=== PATIENT | female | born 1955 | race Caucasian/White ===

== ENCOUNTER 2019-04-23 21:05 | Inpatient (IN) | payer BC ==
--- OUTSIDE RECORDS SUMMARY | 2019-04-23 21:24 | XMS REPORT | Continuity of Care Document ---
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 Problems Active Problems Provider Date Hypothyroidism Lauren Stone RN [employer] Onset: 12/16/2008 Benign essential hypertension Lauren Stone RN [employer] Onset: 12/16/2008 Social History Type Date Description Comments Sex Unknown Tobacco Use Start: Unknown Never Smoked Cigarettes ETOH Use Denies alcohol use Tobacco Use Start: Unknown Patient has never smoked Smoking Status Reviewed: 02/06/19 Patient has never smoked Seat Belt/Car Seat always uses seat belt Allergies, Adverse Reactions, Alerts Description No Known Drug Allergies Medications Active Medications SIG Qnty Indications Ordering Provider Date Valsartan-Hydrochlorot 1 by mouth 30tabs I10 Lauren Stone 01/03/2019 hiazide every day ASHTYN Landa MS 320-12.5mg Tablets Metoprolol Succinate Take One Tablet 30tabs I10 Lauren Stone 03/17/2017 ER By Mouth Every ASHTYN Landa MS 50mg Tablets ER 24HR Day Furosemide Take One Tablet 30tabs R60.0 Lauren Stone 03/17/2017 20mg Tablets By Mouth Every [place], ASHTYN KUO Day Potassium Chloride ER Take One Tablet 30tabs R60.0 Lauren Stone 2016 By Mouth With ASHTYN Landa MS 10Meq Tablets ER Lasix Ferrousul one tab daily 90tabs Lauren Stone 02/08/2017 325(65Fe) mg ASHTYN Landa MS Tablets Citalopram 1 By Mouth 90tabs F41.1 Angel Stoneen 03/10/2016 Hydrobromide Every Day C, RN [employer] 40mg Tablets Prilosec OTC 1 by mouth 90tabs K21.9 Bertha Lauren 07/12/2013 20mg Tablets every day C, RN [employer] DR Buspirone HCL Take 1 Tablet 180tabs F41.1 [employer] Lauren 06/16/2011 15mg Once To Twice A C, RN [employer] Tablets Day Levothyroxine Sodium Take 1 Tablet 90tabs E03.9 [employer] Lauren 06/08/2011 Daily C, RN [employer] 150mcg Tablets Aspirin Enteric Coated 1 PO qd [employer] Lauren 07/19/2006 C, RN [employer] 81mg Tablets Vitamins Multiple [facility] 07/19/2006 C, RN [employer] Caplets History Medications Losartan 1 by mouth 90tabs I10 [facility], 01/03/2019 - Potassium/Hydrochlorothiazide every day [facility], 01/03/2019 100-12.5mg Tablets RN [employer] Irbesartan take one tablet 30tabs I10 [facility], 01/03/2019 - 300mg Tablets by mouth every [facility], 02/06/2019 day for blood RN [employer] pressure Hydrochlorothiazide 1 tablet every 30tabs [facility], 01/03/2019 - 12.5mg Tablets morning, With [facility], 02/06/2019 The Remaining RN [employer] Irbesartan Immunizations CPT Code Status Date Vaccine Lot # [id number] Given 06/26/2018 Influenza Vac, Quadrivalent, Split, 0.5mL Dosage, [id number] Im Use 04642 Given 08/17/2017 Influenza Vac, Quadrivalent, Split, 0.5mL Dosage, [id number] Im Use 65042 Given 09/07/2016 Influenza Vac, Quadrivalent, Split, 0.5mL Dosage, [id number] Im Use 90933 Given 07/29/2015 Influenza Vac, Quadrivalent, Split, 0.5mL Dosage, [id number] Im Use Q2038 Given 07/16/2014 Fluzone Trivalent Immunization [id number] Q2038 Given 07/12/2013 Fluzone Trivalent Immunization [id number] Q2038 Given 06/27/2012 Fluzone Trivalent Immunization [id number] Q2038 Given 06/16/2011 Fluzone Trivalent Immunization [id number] 92967 Given 06/16/2011 Tdap (Adacel) Ages 7 And Above Only [id number] 74715 Given 07/02/2007 Afluria Or Fluvirin Flu Vac Intramuscular 27973 Given 07/02/2007 Afluria Or Fluvirin Flu Vac Intramuscular 15102 Given 07/02/2007 Afluria Or Fluvirin Flu Vac Intramuscular [id number] 34381 Given 07/19/2006 Afluria Or Fluvirin Flu Vac Intramuscular [id number] 93976 Given 06/16/2005 Tetanus And Diptheria Toxoids For Adult [id number] Use-preservative free 23623 Given 06/16/2005 Afluria Or Fluvirin Flu Vac Intramuscular [id number] 53745 Given 06/20/2003 Afluria Or Fluvirin Flu Vac Intramuscular 03972 Given 07/16/2002 Afluria Or Fluvirin Flu Vac Intramuscular 35516 Given 03/14/2002 Hepatitis B Vaccine Adult Dosage 07805 Given 10/23/2001 Hepatitis B Vaccine Adult Dosage 96149 Given 09/26/2001 Hepatitis B Vaccine Adult Dosage 07259 Given 11/04/1999 Immunization Td 7 Yrs Or Older [id number] Refused 01/07/2015 Fluzone Trivalent Immunization Vital Signs Date Vital Result Comment 02/06/2019 1:06pm Weight 352.25 lb Heart Rate 67 /min BP Systolic 149 mmHg BP Diastolic 82 mmHg Height 70 inches 5'10" BMI (Body Mass Index) 50.5 kg/m2 01/03/2019 9:45am Weight 355.25 lb Heart Rate 73 /min BP Systolic 158 mmHg BP Diastolic 88 mmHg Height 70 inches 5'10" BMI (Body Mass Index) 51.0 kg/m2 Results Test Date Facility Test Result H/L Range Note CBC with Auto Diff-[facility]cmg 01/03/2019 [facility] WBC 5.4 K/uL 4.1-11.0 RBC 4.28 M/uL 4.00-5.40 Hemoglobin 12.6 gm/dL 12.0-16.0 Hematocrit 38.4 % 36.0-47.0 MCV 89.9 fL 80.0-97.0 MCH 29.4 pg 27.0-32.0 MCHC 32.7 g/dL 32.0-36.0 RDW 15.0 % High 11.5-14.5 PLT Count 337 K/ul 140-400 MPV 8.4 FL 7.1-10.7 Neutrophil 67.9 % 35.0-75.0 Lymphocyte 17.6 % 16.0-52.0 Monocyte 11.1 % High 2.0-10.0 Eosinophil 2.6 % 0.0-5.0 Basophil 0.8 % 0.0-4.0 Abs Neutrophils 3.7 K/uL 2.1-8.0 Abs Lymphocytes 0.9 K/uL 0.8-5.5 Abs Monocytes 0.6 K/uL 0.1-1.0 Abs Eosinophils 0.1 K/uL 0.0-0.5 Abs Basophils 0.0 K/uL 0.0-0.3 Iron Panel 01/03/2019 [facility] Iron, Total 42 g/dL Low 50-170 Transferrin 334.0 mg/dL 203.0-362.0 Tibc (calc) 468 g/dL 261-478 % Iron Saturation 9.0 % Low 13.0-45.0 Comprehensive Met Panel-[facility] 01/03/2019 [facility] Sodium 140 mmol/L 135- 146 1 Potassium 4.9 mmol/L 3.5-5.2 Chloride# 101 mmol/L 97-110 2 Carbon Dioxide 31 mmol/L 24-34 Calcium 9.8 mg/dL 8.5-10.5 3 Glucose 89 mg/dL 70-105 BUN 11 mg/dL 6-26 Creatinine 0.9 mg/dL 0.5-1.4 Total Protein 6.9 g/dL 6.0-8.0 Albumin 4.1 g/dL 3.6-4.9 Globulin 2.8 g/dL 2.0-3.5 A/G Ratio 1.5 Ratio 1.0-2.2 Total Bilirubin 0.8 mg/dL 0.1-1.3 Alkaline Phosphatase 66 U/L 24-140 Alt 21 U/L 3-42 Ast 19 U/L 8-42 Anion Gap 8 mmol/L 5-15 4 Female Egfr 66 >60 5 Male Egfr 88 >60 6 Lipid 01/03/2019 [facility] Cholesterol 209 mg/dL High 50-199 Triglycerides 114 mg/dL 30-200 HDL 49 mg/dL 35-85 7 Chol/ HDL Ratio 4.3 ratio 3.7-5.6 VLDL 23 mg/dL 2- LDL (Calc) 137 mg/dL High 20-99 8 Laboratory test finding 01/03/2019 [facility] TSH 1.51 uIU/mL 0.35-4.94 1 Updated reference range on new analyzer 2 Updated reference range on new analyzer 3 Updated reference range 12-26-2018 4 Updated Reference Range 5 Concerning GFR Guidelines for Americans: Normal function or mild renal disease, if clinically at risk: >/= 60 mL/min Moderately decreased: 30-59 Severely decreased: 15-29 Renal failure: <15 There is reduced accuracy above 60ml/min/1.73 m squared, but the numeric value may be clinically useful in the near 60 range 6 Concerning GFR Guidelines: Normal function or mild renal disease, if clinically at risk: >/= 60 mL/min Moderately decreased: 30-59 Severely decreased: 15-29 Renal failure: <15 There is reduced accuracy above 60ml/min/1.73 m squared, but the numeric value may be clinically useful in the near 60 range Glomerular Filtration Rate (GFR) is estimated based on the CKD-EPI equation, which assumes a steady state for creatinine as recommended by the National Kidney Disease Education Program in conjunction with the National Institutes of Health and the National Kidney Foundation. Clinical conditions in which it may be necessary to measure GFR by using clearance methods include extremes of age and body size, severe malnutrition or obesity, diseases of skeletal muscle, paraplegia or quadriplegia, vegetarian diet, rapidly changing kidney function, and calculation of the dose of potentially toxic drugs that are excreted by the kidneys. 7 Per NCEP ATP III Guidelines: Results lower than 40 mg/dL are suggestive of increased risk for coronary artery disease. Results > or = to 60 mg/dL are considered a negative risk factor. 8 Per NCEP ATP III Guidelines: Normal Population <130 Patients with medical conditions: CHD/DM Optimal: <100 Borderline high: 130-159 High: 160-189 Very high: >189 Procedures Date Code Description Status 01/28/2019 [id number] Mammogram Completed 08/12/2015 [id number] Mammogram Completed 09/24/2014 [id number] Colonoscopy Completed 08/11/2014 [id number] Mammogram Completed 02/06/2014 [id number] Mammogram Completed 07/30/2013 [id number] Mammogram Completed 07/29/2013 [id number] Mammogram Completed 12/28/2011 [id number] Bone Mineral Density Test Completed 12/28/2011 [id number] Mammogram Completed 09/23/2010 [id number] Mammogram Completed 09/24/2009 [id number] Colonoscopy Completed 12/30/2008 [id number] Mammogram Completed Medical Devices Description No Information Available Encounters Type Date Location Provider Dx Diagnosis Office Visit 02/06/2019 Lauren Morales, I10 Essential (primary) 1:20p RN [facility] hypertension E78.2 Mixed hyperlipidemia K59.00 Constipation, unspecified Z68.43 Body mass index (BMI) 50-59.9, adult Office Visit 01/03/2019 9:40a Lauren Morales, E66.01 Morbid ( severe) RN [facility] obesity due to excess calories F33.0 Major depressive disorder, recurrent, mild D50.9 Iron deficiency anemia, unspecified I10 Essential (primary) hypertension E78.2 Mixed hyperlipidemia E03.9 Hypothyroidism, unspecified K21.9 Gastro-esophageal reflux disease without esophagitis Z12.31 Encntr screen mammogram for malignant neoplasm of breast Z68.43 Body mass index (BMI) 50-59.9, adult Assessments Date Code Description Provider 02/06/2019 I10 Essential (primary) hypertension Laurne Stone RN [facility] 02/06/2019 E78.2 Mixed hyperlipidemia Lauren Stone, ASHTYN [facility] 02/06/2019 K59.00 Constipation, unspecified Lauren Stone, ASHTYN [facility] 02/06/2019 Z68.43 Body mass index (BMI) 50-59.9, adult Lauren Stone, ASHTYN [facility] 01/03/2019 E66.01 Morbid (severe) obesity due to excess Lauren Stone, ASHTYN [facility] calories 01/03/2019 F33.0 Major depressive disorder, recurrent, Lauren Stone, ASHTYN [facility] mild 01/03/2019 D50.9 Iron deficiency anemia, unspecified Lauren Stone, RN [facility] 01/03/2019 I10 Essential (primary) hypertension Lauren Stone, ASHTYN [facility] 01/03/2019 E78.2 Mixed hyperlipidemia Lauren Stone RN [employer] 01/03/2019 E03.9 Hypothyroidism, unspecified Lauren Stone RN [employer] 01/03/2019 K21.9 Gastro-esophageal reflux disease Lauren Stone RN [employer] without esophagitis 01/03/2019 Z12.31 Encounter for screening mammogram for Lauren Stone RN [employer] malignant neoplasm of 01/03/2019 Z68.43 Body mass index (BMI) 50-59.9, adult Lauren Stone RN [employer] 01/03/2019 D50.9 Iron deficiency anemia, unspecified [facility] 01/03/2019 E78.2 Mixed hyperlipidemia [facility] 01/03/2019 E03.9 Hypothyroidism, unspecified [facility] Plan of Treatment Future Appointment(s):05/09/2019 9:40 am - Lauren Stone RN [employer] at [id number]/06/2019 - Lauren Stone RN MS [id number] Essential (primary) hypertensionFollow up:F/U IN 78.2 Mixed [id number] Constipation, unspecifiedMiscellaneous:DISCUSSED ADDING FIBER POWDER DAILY , DEP ON HOW MUCH IT TAKES TO HELP HER STOOL Use 2 tsp of unflavored fiber powder qd and advance to 2 tsp up to three times a day as needed to have a daily regular bm. Increase fluid intake daily to 4-8 glasses/day. Increase fiber by using 1-2 glasses of prune juice or prunes (2-4) daily, soy products, watermelon, apple juice or using whole grain breads, cereal,oatmeal. May try citrocel or metamucil or other fiber source on a regular basis. if you dont like to do the fiber powder, Must take for 1 week to see results. You need to be consistant with your treatment since this is a chronic or on going problem.Z68.43 Body mass index (BMI) 50-59.9, adult Functional Status Description No Information Available Mental Status Description No Information Available Referrals Refer to Reason for Referral Status Appt Date Delroy Wong MD Iron def anemia despite iron Received Complete 02/21/2019 replacement, x few years normal colo last year 01/16 REFERRAL AND RECORDS FAXED TO [facility] AT OFFICE- [facility] FOR PTS [employer] PPO..TW 01/23 SPOKE TO [facility] AT OFFICE- REFERRAL RECEIVED IN PIECES- RECORDS REFAXED..TW 01/28-PER HERI PT SCHEDULED AND AWARE OF APPT-[facility] [address] [place] [address] [phone]
--- OUTSIDE RECORDS SUMMARY | 2019-04-23 21:24 | XMS REPORT | Continuity of Care Document ---
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 [phone] Problems Active Problems Provider Date Hypothyroidism Lauren Stone RN [employer] Onset: 12/16/2008 Benign essential hypertension Lauren Stone RN [employer] Onset: 12/16/2008 Social History Type Date Description Comments Sex Unknown Tobacco Use Start: Unknown Never Smoked Cigarettes ETOH Use Denies alcohol use Tobacco Use Start: Unknown Patient has never smoked Smoking Status Reviewed: 02/06/19 Patient has never smoked Seat Belt/Car Seat always uses seat belt Allergies, Adverse Reactions, Alerts Description No Known Drug Allergies Medications Active Medications SIG Qnty Indications Ordering Provider Date Poly-Iron 150 D50.9 Majo Wick 04/23/2019 150mg MD Pratibha Capsules Xarelto 1 po qd 30tabs Majo Wick 04/23/2019 10mg Tablets MD Pratibha Valsartan-Hydrochlorot 1 by mouth 30tabs I10 Lauren Stone 01/03/2019 hiazide every day C, RN [employer] 320-12.5mg Tablets Metoprolol Succinate Take One Tablet 30tabs I10 Lauren Stone 03/17/2017 ER By Mouth Every C, RN MS KUO 50mg Tablets ER 24HR Day Furosemide Take One Tablet 30tabs R60.0 Lauren Stone 03/17/2017 20mg Tablets By Mouth Every C, ASHTYN KUO Day Potassium Chloride ER Take One Tablet 30tabs R60.0 Lauren Stone 2016 By Mouth With Cordell, RN [employer] 10Meq Tablets ER Lasix Citalopram 1 By Mouth 90tabs F41.1 Angel Stoneen 03/10/2016 Hydrobromide Every Day C, RN [employer] 40mg Tablets Buspirone HCL Take 1 Tablet 180tabs F41.1 Angel Stoneen 06/16/2011 15mg Once To Twice A C, RN [employer] Tablets Day Levothyroxine Sodium Take 1 Tablet 90tabs E03.9 Lauren Stone 06/08/2011 Daily C, RN [employer] 150mcg Tablets Aspirin Enteric Coated 1 PO qd Lauren Stone 07/19/2006 C, RN [employer] 81mg Tablets Vitamins Multiple Angel Stoneen 07/19/2006 C, RN [employer] Caplets History Medications Losartan 1 by mouth 90tabs I10 [place], 01/03/2019 - Potassium/Hydrochlorothiazide every day [facility], 01/03/2019 100-12.5mg Tablets RN [employer] Irbesartan take one tablet 30tabs I10 [place], 01/03/2019 - 300mg Tablets by mouth every [facility], 02/06/2019 day for blood RN [employer] pressure Hydrochlorothiazide 1 tablet every 30tabs [place], 01/03/2019 - 12.5mg Tablets morning, With [facility], 02/06/2019 The Remaining RN [employer] Irbesartan Immunizations CPT Code Status Date Vaccine Lot # [id number] Given 06/26/2018 Influenza Vac, Quadrivalent, Split, 0.5mL Dosage, [id number] Im Use 84924 Given 08/17/2017 Influenza Vac, Quadrivalent, Split, 0.5mL Dosage, [id number] Im Use 62549 Given 09/07/2016 Influenza Vac, Quadrivalent, Split, 0.5mL Dosage, [id number] Im Use 07403 Given 07/29/2015 Influenza Vac, Quadrivalent, Split, 0.5mL Dosage, [id number] Im Use Q2038 Given 07/16/2014 Fluzone Trivalent Immunization [id number] Q2038 Given 07/12/2013 Fluzone Trivalent Immunization [id number] Q2038 Given 06/27/2012 Fluzone Trivalent Immunization [id number] Q2038 Given 06/16/2011 Fluzone Trivalent Immunization [id number] 54206 Given 06/16/2011 Tdap (Adacel) Ages 7 And Above Only [id number] 29490 Given 07/02/2007 Afluria Or Fluvirin Flu Vac Intramuscular 35230 Given 07/02/2007 Afluria Or Fluvirin Flu Vac Intramuscular 77402 Given 07/02/2007 Afluria Or Fluvirin Flu Vac Intramuscular [id number] 87265 Given 07/19/2006 Afluria Or Fluvirin Flu Vac Intramuscular [id number] 69641 Given 06/16/2005 Tetanus And Diptheria Toxoids For Adult [id number] Use-preservative free 64283 Given 06/16/2005 Afluria Or Fluvirin Flu Vac Intramuscular [id number] 08939 Given 06/20/2003 Afluria Or Fluvirin Flu Vac Intramuscular 31361 Given 07/16/2002 Afluria Or Fluvirin Flu Vac Intramuscular 95448 Given 03/14/2002 Hepatitis B Vaccine Adult Dosage 64815 Given 10/23/2001 Hepatitis B Vaccine Adult Dosage 85720 Given 09/26/2001 Hepatitis B Vaccine Adult Dosage 73374 Given 11/04/1999 Immunization Td 7 Yrs Or Older [id number] Refused 01/07/2015 Fluzone Trivalent Immunization Vital Signs Date Vital Result Comment 04/23/2019 8:46am Weight 346.00 lb Heart Rate 88 /min BP Systolic 148 mmHg BP Diastolic 76 mmHg Height 70 inches 5'10" O2 % BldC Oximetry 9596 % Room Air BMI (Body Mass Index) 49.6 kg/m2 02/06/2019 1:06pm Weight 352.25 lb Heart Rate 67 /min BP Systolic 149 mmHg BP Diastolic 82 mmHg Height 70 inches 5'10" BMI (Body Mass Index) 50.5 kg/m2 Results Test Date Facility Test Result H/L Range Note Laboratory test 04/23/2019 [facility] Urea Nitrogen 17 mg/ dL 7-21 finding [phone] Creatinine W/GFR 04/23/2019 [facility] Creatinine 1.1 mg/dL 0.6-1.3 9 [phone] GFR 53 Laboratory test 04/23/2019 [facility] Ferritin <pending> finding Laboratory test 04/23/2019 [facility] D-Dimer,Sensitiv <pending> finding e-RL Xray 04/23/2019 [facility] Cta, Chest, With <pending> [address] [facility] [place] [address] [phone] CBC with Auto 01/03/2019 [facility] WBC 5.4 K/uL 4.1-11.0 Diff-fcmg RBC 4.28 M/uL 4.00-5.40 Hemoglobin 12.6 gm/dL [...] Basophils 0.0 K/uL 0.0-0.3 Iron [facility], Total 42 g/dL Low 50-170 Transferrin 334.0 mg/dL 203.0-362.0 Tibc (calc) 468 g/dL 261-478 % Iron Saturation 9.0 % Low 13.0-45.0 Comprehensive Met Panel-[facility] 01/03/2019 [facility] Sodium 140 mmol/L 135- 146 2 Potassium 4.9 mmol/L 3.5-5.2 Chloride# 101 mmol/L 97-110 3 Carbon Dioxide 31 mmol/L 24-34 Calcium 9.8 mg/dL 8.5-10.5 4 Glucose 89 mg/dL 70-105 BUN 11 mg/dL 6-26 Creatinine 0.9 mg/dL 0.5-1.4 Total Protein 6.9 g/dL 6.0-8.0 Albumin 4.1 g/dL 3.6-4.9 Globulin 2.8 g/dL 2.0-3.5 A/G Ratio 1.5 Ratio 1.0-2.2 Total Bilirubin 0.8 mg/dL 0.1-1.3 Alkaline Phosphatase 66 U/L 24-140 Alt 21 U/L 3-42 Ast 19 U/L 8-42 Anion Gap 8 mmol/L 5-15 5 Female Egfr 66 >60 6 Male Egfr 88 >60 7 Lipid 01/03/2019 [facility] Cholesterol 209 mg/dL High 50-199 Triglycerides 114 mg/dL 30-200 HDL 49 mg/dL 35-85 8 Chol/ HDL Ratio 4.3 ratio 3.7-5.6 VLDL 23 mg/dL 2-29 LDL (Calc) 137 mg/dL High 20-99 9 Laboratory test finding 01/03/2019 [facility] TSH 1.51 uIU/mL 0.35-4.94 1 Normal Kidney Function or Mild Disease - GFR >OR= 60 Chronic Kidney Disease - GFR 15-59 Renal Failure - GFR < 15 GFR not calculated on patients under 18 years of age. 2 Updated reference range on new analyzer 3 Updated reference range on new analyzer 4 Updated reference range 12-26-2018 5 Updated Reference Range 6 Concerning GFR Guidelines for Americans: Normal function or mild renal disease, if clinically at risk: >/= 60 mL/min Moderately decreased: 30-59 Severely decreased: 15-29 Renal failure: <15 There is reduced accuracy above 60ml/min/1.73 m squared, but the numeric value may be clinically useful in the near 60 range 7 Concerning GFR Guidelines: Normal function or mild [...] drugs that are excreted by the kidneys. 8 Per NCEP ATP III Guidelines: Results lower than 40 mg/dL are suggestive of increased risk for coronary artery disease. Results > or = to 60 mg/dL are considered a negative risk factor. 9 Per NCEP ATP III Guidelines: Normal Population <130 Patients with medical conditions: CHD/DM Optimal: <100 Borderline high: 130-159 High: 160-189 Very high: >189 Procedures Date Code Description Status 04/23/2019 83046 Measure Blood Oxygen Level Single Determination Completed 04/23/2019 37138 Electrocardiogram Complete Completed 01/28/2019 [id number] Mammogram Completed 08/12/2015 [id number] Mammogram Completed 09/24/2014 [id number] Colonoscopy Completed 08/11/2014 29250012 Mammogram Completed 02/06/2014 [id number] Mammogram Completed 07/30/2013 [id number] Mammogram Completed 07/29/2013 [id number] Mammogram Completed 12/28/2011 [id number] Bone Mineral Density Test Completed 12/28/2011 [id number] Mammogram Completed 09/23/2010 [id number] Mammogram Completed 09/24/2009 [id number] Colonoscopy Completed 12/30/2008 [id number] Mammogram Completed Medical Devices Description No Information Available Encounters Type Date Location Provider Dx Diagnosis Office Visit 02/06/2019 Lauren Morales, I10 Essential (primary) 1:20p RN [employer] hypertension E78.2 Mixed hyperlipidemia K59.00 Constipation, unspecified Z68.43 Body mass index (BMI) 50.0-59.9, adult Office Visit 01/03/2019 9:40a Lauren Morales, E66.01 Morbid ( severe) RN [employer] obesity due to excess calories F33.0 Major depressive disorder, recurrent, mild D50.9 Iron deficiency anemia, unspecified I10 Essential (primary) hypertension E78.2 Mixed hyperlipidemia E03.9 Hypothyroidism, unspecified K21.9 Gastro-esophageal reflux disease without esophagitis Z12.31 Encntr screen mammogram for malignant neoplasm of breast Z68.43 Body mass index (BMI) 50.0-59.9, adult Assessments Date Code Description Provider 04/23/2019 E66.01 Morbid (severe) obesity due to excess Majo Wick MD calories 04/23/2019 R06.02 Shortness of breath Majo Wick MD 04/23/2019 D50.9 Iron deficiency anemia, unspecified Majo Wick MD 04/23/2019 I10 Essential (primary) hypertension Majo Wick MD 04/23/2019 R60.0 Localized edema Majo Wick MD 04/23/2019 Z68.42 Body mass index (BMI) 45.0-49.9, adult Majo Wick MD 02/06/2019 I10 Essential (primary) hypertension Lauren Stone RN [facility] 02/06/2019 E78.2 Mixed hyperlipidemia Lauren Stone, ASHTYN [facility] 02/06/2019 K59.00 Constipation, unspecified Lauren Stone, ASHTYN [facility] 02/06/2019 Z68.43 Body mass index (BMI) 50-59.9, adult Lauren Stone, ASHTYN [facility] 01/03/2019 E66.01 Morbid (severe) obesity due to excess Lauren Stone, ASHTYN [facility] calories 01/03/2019 F33.0 Major depressive disorder, recurrent, Lauren Stone, ASHTYN [facility] mild 01/03/2019 D50.9 Iron deficiency anemia, unspecified Lauren Stone, ASHTYN [facility] 01/03/2019 I10 Essential (primary) hypertension Lauren Stone, ASHTYN [facility] 01/03/2019 E78.2 Mixed hyperlipidemia Lauren Stone, ASHTYN [facility] 01/03/2019 E03.9 Hypothyroidism, unspecified Lauren Stone, RN [facility] 01/03/2019 K21.9 Gastro-esophageal reflux disease Lauren Stone, RN [facility] without esophagitis 01/03/2019 Z12.31 Encounter for screening mammogram for Lauren Stone RN [facility] malignant neoplasm of 01/03/2019 Z68.43 Body mass index (BMI) 50-59.9, adult Lauren Stone, ASHTYN [facility] 01/03/2019 D50.9 Iron deficiency anemia, unspecified [facility] 01/03/2019 E78.2 Mixed hyperlipidemia [facility] 01/03/2019 E03.9 Hypothyroidism, unspecified [facility] Plan of Treatment Future Appointment(s):05/09/2019 9:40 am - Lauren Stone RN [facility] [employer] [facility] at [facility]/23/2019 - Majo Wick MDE66.01 Morbid (severe) obesity due to excess caloriesNew Labs:BUN/Creat/GFR Panel, Ordered: 04/23/19R06.02 Shortness of xbcbwgC49.9 Iron deficiency anemia, unspecifiedNew Medication:Poly-Iron 150 150 mg -I10 Essential (primary) xidmlhwodniwY80.0 Localized edemaNew Xrays: Venous Doppler, LT Leg Lower, Scheduled: 04/23/19Z68.42 Body mass index (BMI) 45.0-49.9, adult Functional Status Description No Information Available Mental Status Description No Information Available Referrals Refer to Dr Reason for Referral Status Appt Date Delroy Wong MD Iron def anemia despite iron Received Complete 02/21/2019 replacement, x few years normal colo last year 01/16 REFERRAL AND RECORDS FAXED TO [facility] AT OFFICE- NRN FOR PTS [employer] PPO..TW 01/23 SPOKE TO [facility] AT OFFICE- REFERRAL RECEIVED IN PIECES- RECORDS REFAXED..TW 01/28-PER HERI PT SCHEDULED AND AWARE OF APPT-[facility] [address] [place] [address] [phone]
--- NOTE | 2019-04-23 21:40 | ED ---
Dizziness - HPI Summary HPI Summary: This pt is a 63 Y/O F presenting to [facility] accompanied by her with a CC of dizziness that is rated a 5/10 in severity and was recommended to visit the ED from her PCP. She states that she was prescribed Xarelto 10 mg today after being discharged with a blood clot in her left lower leg. 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 Her provider recommended visiting the ED for a GI work-up to rule out a GI bleed. She stated that for the past two weeks her dizziness has increased in severity and for the past week she has been unable to stand by herself. Upon arrival her temperature was recorded as 100.1 F in triage. She is also SOB and has nausea. She denies any vomiting, headaches, chills, abdominal pains, and CP. She stated that standing and exertions aggravates her symptoms. She stated no alleviating symptoms. She has a PMHx of low iron that has been controlled by iron supplements. She stated that her last colonoscopy was completed 10/04/17 and had 4 polyps. She states that she no longer gets a period. - History Of Current Complaint Chief Complaint: EDDizziness Stated Complaint: BLOOD CLOT IN LEFT LEG PER PT Time Seen by Provider: 04/23/19 21:24 Hx Obtained From: Patient Last Known Well Date: 2 weeks PARKING TECHNICIAN Onset/Duration: Still Present, Gradually - has been incresing in severity for 2 weeks Timing: Constant Severity Initially: Moderate Severity Currently: Severe Character: Dizzy Aggravating Factor(s): Other - standing, exertion Alleviating Factor(s): Nothing Associated Signs And Symptoms: Positive: Negative - headaches, abdominal pains, Nausea, SOB, Change In Medication - Xarelto 10 mgs prescribed today, Fever - 100.1 F, Inability to Walk. Negative: Vomiting, Chest Pain, Chills - Allergies/Home Medications Allergies/Adverse Reactions: Allergies Allergy/AdvReac Type Severity Reaction Status Date / Time No Known Allergies Allergy Verified 09/22/14 15:30 PMH/Surg Hx/FS Hx/Imm Hx Previously Healthy: No Endocrine/Hematology History: Denies: Hx Diabetes Cardiovascular History: Reports: Hx Hypertension, Other Cardiovascular Problems/ Disorders - Low iron Denies: Hx Pacemaker/ICD Respiratory History: Denies: Hx Asthma History: Denies: Hx Renal Disease Sensory History: Denies: Hx Hearing Aid Psychiatric History: Reports: Hx Panic Disorder - Cancer History Hx Chemotherapy: No Hx Radiation Therapy: No - Surgical History Surgery Procedure, Year, and Place: TUBAL 94;. GALLBLADDER 04;. RIGHT BREAST BIOPSY (PATIENT STATES NO CLIP TO HER KNOWLEDGE); Infectious Disease History: No Infectious Disease History: Denies: Traveled Outside the [place] in Last 30 Days - Social History Alcohol Use: None Substance Use Type: Reports: None Smoking Status (MU): Never Smoked Tobacco Review of Systems Positive: Fever - 100.1 F, Other - POSITIVE: dizziness, inability to walk . Negative: Chills Negative: Chest Pain Positive: Shortness Of Breath Positive: Nausea. Negative: Abdominal Pain, Vomiting Negative: Headache All Other Systems Reviewed And Are Negative: Yes Physical Exam - Summary Physical Exam Summary: VITAL SIGNS: Reviewed. GENERAL: Patient is a well-developed and morbidly obese, female who is lying comfortable in the stretcher. Patient is not in any acute respiratory distress. HEAD AND FACE: No signs of trauma. No ecchymosis, hematomas or skull depressions. No sinus tenderness. EYES: PERRLA, EOMI x 2, No injected conjunctiva, no nystagmus. EARS: Hearing grossly intact. Ear canals and tympanic membranes are within normal limits. MOUTH: Oropharynx within normal limits. NECK: Supple, trachea is midline, no adenopathy, no JVD, no carotid bruit, no c- spine tenderness, neck with full ROM CHEST: Symmetric, no tenderness at palpation LUNGS: Clear to auscultation bilaterally. No wheezing or crackles. CVS: Regular rate and rhythm, S1 and S2 present, no murmurs or gallops appreciated. ABDOMEN: Soft, non-tender. No signs of distention. No rebound no guarding, and no masses palpated. Bowel sounds are normal. EXTREMITIES: FROM in all major joints, no edema, no cyanosis or clubbing. NEURO: Alert and oriented x 3. No acute neurological deficits. Speech is normal and follows commands. SKIN: Dry and warm, pale RECTAL: external hemorrhoids not bleeding. No masses, brown stool sent for occult screening. Triage Information Reviewed: Yes Vital Signs On Initial Exam: Initial Vitals Temp Pulse Resp BP Pulse Ox 100.1 F 98 18 150/85 98 04/23/19 21:12 04/23/19 21:12 04/23/19 21:12 04/23/19 21:12 04/23/19 21:12 Vital Signs Reviewed: Yes Diagnostics - Vital Signs Vital Signs Temp Pulse Resp BP Pulse Ox 04/23/19 21:27 98.1 F 04/23/19 21:12 100.1 F 98 18 150/85 98 - Laboratory Result Diagrams: 04/23/19 22:04 04/23/19 22:04 Lab Statement: Any lab studies that have been ordered have been reviewed, and results considered in the medical decision making process. - EKG 2144 Cardiac Rate: NL - 91 BPM EKG Rhythm: Sinus Rhythm Ectopy: None EKG Comparison: No Significant Change Summary of EKG Findings: NSR at 91 BPM with Q waves in her inferior leads. Normal interval. No STEMI. Interpreted [place] Dr. Chisholm at 214404/23/19. Dizzy Course/Dx - Course Course Of Treatment: This pt is a 63 Y/O F [facility] accompanied by her with a CC of dizziness that is rated a 5/10 in severity and was recommended to visit the ED from her PCP. She states that she was prescribed Xarelto 10 mg today after being discharged with a blood clot in her left lower leg. 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 She stated that she has been SOB and has had episodic nausea. She is also unable to stand due to the severity of the dizziness. She denies any CP, abdominal pain, and vomiting. She has a PMHx of polyps, anemia, and HTN. Her PE found that she is pale, morbidly obese, and has external hemorrhoids not bleeding. No masses, brown stool sent for occult screening. She has abnormalities in her laboratory results in RBC 2.46, Hgb 5.7, Hct 18, MCV 74, MCH 23, RDW 22, MPV 7.2, Absolute monos 1.2, INR 1.55, APTT 43.3, BUN/ Creatinine ratio 20.7, and Glucose 108. Her EKG taken at 2144 showed a NSR at 91 BPM with Q waves in her inferior leads. Normal interval. No STEMI. She will be admitted to [facility] after a consult with Dr. Clemons, hospitalist, at 2253 for symptomatic anemia and further evaluations. - Diagnoses Provider Diagnoses: Symptomatic anemia - Provider Notifications Discussed Care Of Patient With: La Nena Clemons Time Discussed With Above Provider: 22:55 Instructed by Provider To: Admit As Inpatient Admit/Transition Orders Completed By ED Provider: Yes Discharge ED - Sign-Out/Discharge Documenting (check all that apply): Patient Departure - admitted Patient Received Moderate/Deep Sedation with Procedure: No - Discharge Plan Condition: Stable Disposition: ADMITTED TO [facility] Referrals: Majo Powell MD [Primary Care Provider] - - Attestation Statements Document Initiated by Scribe: Yes Documenting Scribe: Cheikh Saldivar Provider For Whom Scribe is Documenting (Include Credential): Cassie Chisholm MD Scribe Attestation: Cheikh Egan, scribed for Cassie Chisholm MD on 04/23/19 at 2253. Status of Scribe Document: Ready
[2019-04-23 22:19] LABS: Hematocrit 18 % (35-47); Hemoglobin 5.7 g/dL (12.0-16.0); Mean Corpuscular HGB Conc 31 g/dL (31-36); Mean Corpuscular Hemoglobin 23 pg (27-31); Mean Corpuscular Volume 74 fL (80-97); Mean Platelet Volume 7.2 fL (7.4-10.4); Platelet Count 395 10^3/uL (150-450); Red Blood Count 2.46 10^6 /uL (3.70-4.87); Red Cell Distribution Width 22 % (10-15); White Blood Count 9.8 10^3/uL (3.5-10.8)
[2019-04-23 22:26] LABS: Activated Partial Thrombo Time 43.3 seconds (26.0-38.0); INR 1.55 (0.82-1.09)
[2019-04-23 22:30] LABS: ALT 18 U/L (7-52); AST 14 U/L (13-39); Albumin 3.8 g/dL (3.2-5.2); Albumin/Globulin Ratio 1.3 (1-3); Alkaline Phosphatase 57 U/L (34-104); Anion Gap 6 mmol/L (2-11); BUN/Creatinine Ratio 20.7 (8-20); Blood Urea Nitrogen 19 mg/dL (6-24); CO2 Carbon Dioxide 27 mmol/L (22-32); Calcium 8.9 mg/dL (8.6-10.3); Chloride 103 mmol/L (101-111); EGFR African American 74.6 (>60); EGFR Non-African American 61.7 (>60); Glucose 108 mg/dL (70-100); Sodium 136 mmol/L (135-145); Total Protein 6.8 g/dL (6.4-8.9)
[2019-04-23 22:40] LABS: ABS Basophils 0.1 10^3/ul (0-0.2); ABS Eosinophils 0.1 10^3/ul (0-0.6); ABS Lymphocytes 1.6 10^3/ul (1.0-4.8); ABS Monocytes 1.2 10^3/ul (0-0.8); ABS Neutrophils 6.8 10^3/ul (1.5-7.7); ABS Nucleated RBC 0.1 10^3/ul; Lymphocyte % 16.2 %; Nucleated Red Blood Cells % 0.6
[2019-04-23] MEDS ORDERED: Acetaminophen TAB* 325 MG PO PRN (23:10)
[2019-04-23] MEDS ORDERED: Ondansetron ODT TAB* 4 MG PO PRN (23:10)
[2019-04-23 23:31] LABS: Total Iron Binding Capacity 549 mcg/dL (250-450); Transferrin 392 mg/dL (203-362)
[2019-04-23 23:33] LABS: % Iron Saturation 4 % (15-55); Iron < 20 ug/dL (50-212)
[2019-04-23 23:53] LABS: Ferritin 4.4 ng/mL (11-307)
[2019-04-23 23:57] LABS: Folate 15.68 ng/mL (>3.99)
--- NOTE | 2019-04-24 02:13 | HP ---
HISTORY AND PHYSICAL: DATE OF ADMISSION: 04/23/19 PRIMARY CARE PROVIDER: Dr. Majo Wick. BURGLAR ALARM SUPERINTENDENT: Hayder Randle, the patient's . CODE STATUS: Full. CHIEF COMPLAINT: Abnormal labs, dizziness. REASON FOR ADMISSION: Symptomatic anemia. SOURCE OF INFORMATION: HPI is obtained from the patient, who is an excellent historian. HISTORY OF PRESENT ILLNESS: This is 63-year-old female with a past medical history of iron-deficient anemia diagnosed roughly 2 years ago, followed by Dr. Wong; hypothyroidism; hypertension; anxiety; history of DVT 3 years ago, treated with 6 months of oral anticoagulants and recently diagnosed superficial thrombophlebitis of left lower extremity, who presents to the ER this evening with complaints of dizziness along with an outside abnormal lab value. The patient reports that for the last 4 days, she has been getting worked up by her primary care provider for new left lower leg swelling, redness, and pain along with dizziness. She was sent to [facility] this morning to get a rule out ultrasound for DVT and CTA for PE and per her, the CTA was negative, although the ultrasound of left lower extremity did show a superficial thrombophlebitis, although did not meet criteria for DVT. Nonetheless, the position of the superficial thrombophlebitis and the extent it was enough that the decision of her primary care provider and Dr. Wong decided to place the patient on low-dose Xarelto at 10 mg for a total of 40 days. She also ended up getting labs done in [facility] and this evening, she got a call from her primary care provider as labs resulted with a low hemoglobin to a level of 6 and she was told to present to the emergency room. The patient on interview in the emergency room reports that iron deficiency anemia has been off and on for the last 3 years and she has been on iron supplementation. She got a colonoscopy in 2018, which showed 4 small noncancerous polyps, benign lipoma, but otherwise no finding. She has never had an EGD. She had a mammogram and Pap smear, both done in the last 2 years which were negative. She has no other symptoms of abdominal pain, melena, hematemesis, unintended weight loss, new pains, or other constitutional symptoms like fevers and chills. She does report a change in bowel habits since being diagnosed with iron deficiency anemia 2 years ago with intermittent constipation, diarrhea, and dark stools since she started taking iron. She has never had an iron transfusion. This evening, the review of systems is positive only for fatigue increasing for the last 3 to 4 weeks, intermittent constipation and diarrhea as well as increased bowel sounds noting that her stomach seems to be rumbling quite a bit. EMERGENCY ROOM COURSE: In the ER, temperature is 100.1, heart rate 98, oxygen 98% on room air, respiratory rate 18, blood pressure 150/85. Labs were drawn which showed a hemoglobin of 5.7 and last recorded labs with Dr. Wong in January of 2019 showed a hemoglobin of 10.9, MCV is 74, platelets are 385, and white blood cell count is 9.8, RDW is 22. An EKG was done, which showed normal sinus rhythm with no acute signs of ischemia. Again, cancer screening of note, last mammogram was in 2019 in January with BI- RADS of 2. Colonoscopy was done in 2018 showing 4 benign appearing polyps with pathology subsequently showing benign and a 2-cm subepithelial lesion in the hepatic flexure thought to be secondary to lipoma as well as diverticula and nonbleeding external hemorrhoids. Pap was done in 2018, which was negative for any intraepithelial cancerous lesions. Also, of note, the patient does have a gene mutation for heterozygous prothrombin/factor II thought to be contributing to her underlying clotting disorder. Secondary to the patient's symptomatic anemia and need for blood transfusion, the hospitalist team was asked to evaluate the patient. She was ordered for 2 units of packed red blood cells, the first of which was given in the emergency room. PAST MEDICAL HISTORY: Iron deficiency anemia, diagnosed in 2016, followed by Dr. Wong; hypothyroidism; hypertension; anxiety; history of distant thought to be provoked DVT in 2014 and subsequent superficial thrombophlebitis of left lower extremity diagnosed in March of 2019. PAST SURGICAL HISTORY: Status post cholecystectomy, status post tonsillectomy, and history of distant D and Cs. The patient is post menopausal with last period 13 years ago. MEDICATIONS: 1. Aspirin 81 mg. 2. Multivitamin. 3. Potassium chloride 10 mEq p.o. daily. 4. Citalopram 40 mg p.o. daily. 5. Vitamin D 2000 units p.o. daily. 6. Ferrous sulfate 325 mg p.o. daily. 7. Furosemide 20 mg p.o. daily. 8. Levothyroxine 150 mcg 1 tab p.o. daily. 9. Metoprolol succinate 25 mg p.o. daily. 10. Valsartan 320 mg p.o. daily. ALLERGIES: No known drug allergies. FAMILY HISTORY: Her mother is from colon cancer in the 70s, also was diabetic and history of clotting disorder, on lifelong anticoagulation. Father is with diabetes and prostate cancer. 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 She [place] the farm with her . She is a lifetime nontobacco user and a once- or [id number] alcohol user with a lifetime history of no illicits. REVIEW OF SYSTEMS: Constitutional: Positive for fatigue. Negative for fevers , chills, and malaise. HEENT: Negative for headaches, vision changes, sore throat. Cardiovascular: Negative for chest pain, palpitations, orthopnea. Respiratory: Negative for shortness of breath, cough, pleuritic chest pain. GI : Negative for nausea or vomiting. Positive for intermittent diarrhea and constipation. No abdominal pain is noted. : Negative for dysuria and hematuria. Musculoskeletal: Negative for new myalgias, arthralgias, or weakness. Skin: Negative for new rashes or lesions. Neurologic: Negative for focal weakness or numbness. Psychiatric: Negative for depression, anxiety. Endocrine: Negative for polyuria, polydipsia. Heme: Negative for easy bruising, bleeding, or lymphadenopathy. Positive for left lower extremity swelling and newly diagnosed, as of today, superficial thrombophlebitis of the left lower extremity. Allergies: Negative for frequent infections. PHYSICAL EXAMINATION GENERAL APPEARANCE: This is a pleasant well-appearing woman, in no acute distress, lying in bed. VITAL SIGNS: At the time of physical exam, blood pressure is 135/78; heart rate is 90, sinus; the patient is afebrile; respiratory rate is 15; satting 97% on room air. HEENT: She has pale conjunctivae, but extraocular muscles are intact. Sclerae are anicteric. Oropharynx shows moist mucous membranes with no other lesions. NECK: Supple with no supraclavicular or cervical lymphadenopathy. RESPIRATORY: Lungs are clear to auscultation bilaterally. CARDIAC: The patient has a 1-2/6 systolic murmur consistent with a flow murmur heard best in left upper sternal border with no other rubs or gallops. ABDOMEN: Belly is distended, but soft, nontender with normoactive bowel sounds and no organomegaly noted. EXTREMITIES: The patient has erythematous 1+ pitting edema to left lower extremity from ankle to mid calf, mildly tender to palpation. Otherwise, 2+ pulses, right lower extremity without edema, warm, and well perfused. NEURO: Cranial nerves II through XII are intact. No focal neurologic deficits. A and O x4. Pleasant and cooperative with the exam. DIAGNOSTIC STUDIES/LAB DATA: White blood cell count 9.4, hemoglobin 5.7, hematocrit 18, platelets 395. CMP: Sodium 136, potassium 4, chloride 103, carbon dioxide 27, anion gap 6, BUN 19, creatinine 0.92, glucose 108, calcium 8.9. Iron is less than 20, TIBC is 549, transferrin is 392, ferritin is pending at the time of quality assurance clerk. Total bili is 0.5, AST 14, ALT 18, alk phos 57. B12 and folate are pending at the time of quality assurance clerk. Imaging: EKG is done that shows normal sinus rhythm, no acute signs of ischemia. Labs and EKG were reviewed by myself. ASSESSMENT AND PLAN: This is a 62-year-old female with past medical history of iron-deficient anemia followed by Dr. Wong, diagnosed 3 years ago; hypothyroidism; hypertension; anxiety; history of distant deep venous thrombosis and newly diagnosed superficial thrombophlebitis that meets criteria for anticoagulation of the left lower extremity, who presents to the ER this evening with complaints of dizziness and abnormal outpatient labs, found to have a symptomatic microcytic anemia. She is receiving blood transfusions in the emergency room and will be admitted to the hospital for continued monitoring and workup. 1. Microcytic anemia, symptomatic. The patient has hemoglobin of 5.7 and she is receiving 2 units of packed red blood cells and we will do followup CBC to assess her appropriate response. Iron studies reveal low iron, ferritin is pending, although this appears to be with low MCV, consistent with microcytic anemia and iron deficient anemia. We will consult Heme to determine if iron transfusion is appropriate given long ongoing outpatient workup. Furthermore, fecal occult blood stool testing is ordered along with O and P as the patient says last travel outside of the country was to [place] roughly 3 years ago when she feels that some of these symptoms started. Furthermore, the patient is status post colonoscopy in 2018, although she has never had an EGD and it is reasonable to consider obtaining one if the heme team feels this is appropriate to expedite workup of her symptomatic anemia. 2. Venous thromboembolism. The patient was started on Xarelto and only received 1 dose this evening. This is for new superficial thrombophlebitis not meeting criteria for deep venous thrombosis. We will attempt to get imaging from [facility] by records request on 04/24/19 to determine the extent of this new superficial thrombophlebitis. She has also history of prothrombin and factor II heterozygous putting her at possible coagulopathic state. Until further determination of cause of iron deficiency anemia, I would favor holding anticoagulation given risks, benefits, and reassuring negative CTA done at [facility] this morning. 3. Hypertension. We will continue home losartan and metoprolol. 4. Hypothyroidism. We will continue home Synthroid. 5. Anxiety. Continue home citalopram. 6. DVT prophylaxis: We will place the patient on SCDs and ambulatory status and hold pharmacologic DVT prophylaxis at this time given symptomatic anemia and possible GI source of iron deficient anemia. 7. Code status is full. 8. Disposition: Stable for admission to [address] [place] [address] without tele. 9. FEN: We will place the patient on clear liquid diet in the event EGD is to be considered in this hospitalization. TIME SPENT: Forty-five minutes was spent in the planning of this admission; over half of that spent directly at the bedside with the patient providing direct patient care. Plan of care is discussed with the patient and her with no further questions and understand admission and further evaluation and treatment. [id number]/[facility] #: [id number] JONATHON
[2019-04-24 02:37] LABS: Hematocrit 19 % (35-47); Mean Corpuscular HGB Conc 31 g/dL (31-36); Mean Corpuscular Hemoglobin 23 pg (27-31); Mean Corpuscular Volume 75 fL (80-97); Mean Platelet Volume 7.6 fL (7.4-10.4); Platelet Count 371 10^3/uL (150-450); Red Blood Count 2.57 10^6 /uL (3.70-4.87); Red Cell Distribution Width 22 % (10-15); White Blood Count 9.9 10^3/uL (3.5-10.8)
[2019-04-24] MEDS: Levothyroxine TAB* 150 MCG TAB PO SCH (07:00)
[2019-04-24 08:57] LABS: ABS Basophils 0.1 10^3/ul (0-0.2); ABS Eosinophils 0.1 10^3/ul (0-0.6); ABS Lymphocytes 1.1 10^3/ul (1.0-4.8); ABS Monocytes 0.9 10^3/ul (0-0.8); ABS Neutrophils 5.8 10^3/ul (1.5-7.7); Eosinophil % 1.3 %; Hematocrit 20 % (35-47); Hemoglobin 6.2 g/dL (12.0-16.0); Lymphocyte % 13.9 %; Mean Corpuscular HGB Conc 31 g/dL (31-36); Mean Corpuscular Hemoglobin 24 pg (27-31); Mean Corpuscular Volume 75 fL (80-97); Nucleated Red Blood Cells % 0.1; Platelet Count 325 10^3/uL (150-450); Red Blood Count 2.63 10^6 /uL (3.70-4.87); Red Cell Distribution Width 22 % (10-15); White Blood Count 8.1 10^3/uL (3.5-10.8)
[2019-04-24] MEDS: Cholecalciferol TAB* 1000 UNITS PO SCH (10:18)
[2019-04-24] MEDS: Citalopram TAB* 20 MG PO SCH (10:18)
[2019-04-24] MEDS: Ferrous Sulfate TAB* 325 MG PO SCH (10:18)
[2019-04-24] MEDS: Valsartan TAB* 160 MG PO SCH (10:18)
[2019-04-24] MEDS: Furosemide TAB* 20 MG PO SCH (10:18)
[2019-04-24] MEDS: Metoprolol Succinate XL TAB* 50 MG PO SCH (10:18)
--- NOTE | 2019-04-24 13:39 | PN ---
Subjective Date of Service: 04/24/19 Interval History: Ms. Randle is feeling better today. SOB and dizziness have resolved. She still feels very tired. Has been able to ambulate to the bathroom independently without difficulty. Denies CP, N/V. No concerns from nursing. Family History: Unchanged from Admission Social History: Unchanged from Admission Past Medical History: Unchanged from Admission Objective Active Medications: Acetaminophen (Tylenol Tab*) 650 mg PO Q6H PRN PAIN - MILD Cholecalciferol (Vitamin D Tab*) 2,000 units PO DAILY MIKEL Citalopram Hydrobromide (Celexa Tab*) 40 mg PO DAILY MIKEL Ferrous Sulfate (Ferrous Sulfate Tab*) 325 mg PO DAILY MIKEL Furosemide (Lasix Tab*) 20 mg PO DAILY MIKEL Levothyroxine Sodium (Synthroid Tab*) 150 mcg PO 0600 MIKEL Metoprolol Succinate (Toprol Xl Tab*) 50 mg PO DAILY MIKEL Ondansetron HCl (Zofran Odt Tab*) 4 mg PO Q8H PRN NAUSEA/VOMITING Valsartan (Diovan Tab*) 320 mg PO DAILY MIKEL Vital Signs - 8 hr 04/24/19 07:15 Temperature 97.7 F Pulse Rate 87 Respiratory 16 Rate Blood Pressure 148/64 (mmHg) O2 Sat by Pulse 97 Oximetry Oxygen Devices in Use Now: None Appearance: Middle-aged female laying in bed in NAD Eyes: No Scleral Icterus Ears/Nose/Mouth/Throat: Mucous Membranes Moist Neck: NL Appearance and Movements; NL JVP, Trachea Midline Respiratory: Symmetrical Chest Expansion and Respiratory Effort, Clear to Auscultation Cardiovascular: NL Sounds; No Murmurs; No JVD Abdominal: NL Sounds; No Tenderness; No Distention Extremities: No Edema Neurological: Alert and Oriented x 3 Lines/Tubes/Other Access: Clean, Dry and Intact Peripheral IV Nutrition: Taking PO's Result Diagrams: 04/24/19 08:02 04/23/19 22:04 Assess/Plan/Problems-Billing Assessment: Ms. Randle is a 63 yo F with PMH of ID anemia, HTN, hypothyroidism, anxiety, and DVT; who presented to the ED with c/o dizziness and was found to be markedly anemic. - Patient Problems (1) Iron deficiency anemia Code(s): D50.9 - IRON DEFICIENCY ANEMIA, UNSPECIFIED Comment: - Chronic, but Hgb was 10 in January 2019, so there has been a signficant drop since then - Stool occult negative - Likely that this is all r/t ID and she has been compensating with slow decrease in Hgb - Appreciate Heme consult; ? IV iron - Received 2 units PRBC on admission - Transfuse 2 additional units PRBC today and recheck CBC this evening (2) Superficial thrombophlebitis Code(s): I80.9 - PHLEBITIS AND THROMBOPHLEBITIS OF UNSPECIFIED SITE Comment: - Newly noted in LLE on imaging at [facility], but CTA negative - History of provoked (?) DVT; previously on 6 mo anticoagulation - Took 1 dose of Xarelto prior to admission - Hold Xarelto in the setting of anemia, but it is not clear that she actually needs to be on AC at this time (3) Hypertension Code(s): I10 - ESSENTIAL (PRIMARY) HYPERTENSION Comment: - Slightly hypertensive, SBP 140s - Continue furosemide, metoprolol, valsartan (4) Anxiety Code(s): F41.9 - ANXIETY DISORDER, UNSPECIFIED Comment: - Continue citalopram (5) Hypothyroidism Code(s): E03.9 - HYPOTHYROIDISM, UNSPECIFIED Comment: - Continue levothyroxine (6) DVT prophylaxis Code(s): Z29.9 - ENCOUNTER FOR PROPHYLACTIC MEASURES, UNSPECIFIED Comment: - Ambulation only in the setting of severe anemia and thrombophlebitis (7) Full code status Code(s): Z78.9 - OTHER SPECIFIED HEALTH STATUS Comment: Status and Disposition: Inpatient. Anticipate d/c home when medically stable. Attending: Deshawn Jameson
[2019-04-24] MEDS ORDERED: fentaNYL* 50 MCG/ML 2 ML VIAL (100 MCG VIAL) ONE (14:21)
[2019-04-24] MEDS ORDERED: Midazolam* 1 MG/ML 10 ML VIAL (10 MG) ONE (14:22)
--- NOTE | 2019-04-24 15:50 | PN ---
Progress Note - Progress Note Date of Service: 04/24/19 Note: BRIEF GI PROCEDURE NOTE EGD performed today given acute on chronic iron deficiency anemia. Large hiatal hernia. At least 3 clean-based gastric ulcers in hiatal hernia and at least 2- clean based ulcers near antrum. Duodenum normal. No AVMs. No fresh or active bleeding. Few small pieces of old blood seen in stomach. Findings on upper exam could certainly explain some component of chronic blood loss/iron deficiency anemia. No e/o active GI bleeding in UGI tract to explain why H/H has failed to bump as would be expected with 2 units. - Await pathology (biopsies obtained from stomach to r/o H pylori and duodenum to r/o celiac dz). - Continue IV PPI BID (can switch to po BID once stable from H/H standpoint) - Clear diet for now. Can advance diet if H/H starts to improve and stabilize. - If H/H fails to improve as expected with additional 2 units of blood, then I would rule-out hemolysis and consider CT abdomen/pelvis and updated colonoscopy. - Avoid anticoagulation unless necessary -- patient diagnosed with superficial thrombophlebitis as opposed to DVT. - Plan for EGD in 2 months to reassess for gastric ulcer healing Discussed case with Dr Wong. GI will continue to follow. Tess Escobedo MD Gastroenterology
[2019-04-24 16:59] LABS: Hematocrit 22 % (35-47); Hemoglobin 6.9 g/dL (12.0-16.0)
--- NOTE | 2019-04-24 17:15 | CONS ---
CC: Dr. Clemons; Dr. Wick; Dr. Wong * GASTROENTEROLOGY CONSULT REPORT: DATE OF CONSULT: 04/24/19 REQUESTING PROVIDER: Dr. Clemons. PRIMARY CARE PROVIDER: Dr. Wick. RADIO ENGINEER: Dr. Wong. INDICATION FOR CONSULT: Severe iron deficiency anemia. HISTORY OF PRESENT ILLNESS: Ms. Randle is a 63-year-old woman with a history of iron deficiency anemia as well as presumed hypercoagulability with a DVT several years ago and recent diagnosis of superficial thrombophlebitis, who presents to the ED with symptomatic anemia. Ms. Randle follows with Dr. Wong for iron deficiency anemia which was diagnosed 2 to 3 years ago. She was on anticoagulation for several months around that time as treatment for a DVT. More recently, she has been having lower leg swelling, redness, and pain over the past week. She was seen and diagnosed with a superficial thrombophlebitis. The decision was made to start low-dose Xarelto for little over a month given her history and significant nature of the presentation. She took 1 dose of the Xarelto and then was contacted that her labs demonstrated a hemoglobin of 6. She was directed to the ED. On interview, Ms. Randle states that over the last few weeks she has had increasing fatigue as well as dyspnea with minimal exertion. She has had a "pins and needles" feeling in her lower abdomen when she wakes up in the morning. She is unable to characterize this discomfort further, although she notes that she has been eating breakfast much later in the morning because of the abdominal sensation. She has a history of abnormal bowel movements ranging from diarrhea to constipation. Bowel movements have not changed recently. The stool has been dark [id number], which is unchanged from baseline. She has attributed the dark color to being on iron once a day. She has not seen any red blood other than a small amount with wiping occasionally after having a constipated bowel movement. Her daily PPI was discontinued by Dr. Wong in January. She has not noted any significant change in baseline GERD since stopping the PPI. She reports having some GERD symptoms on a nearly daily basis. Denies any nausea, vomiting, or dysphagia. She has not had any weight loss. Last colonoscopy was performed in 2018 which demonstrated 4 small tubular adenomas. She was also noted to have colonic submucosal lesion suspected to be a lipoma, diverticulosis, and external hemorrhoids. On arrival to the ED, the patient was noted to have hemoglobin of 5.7. She was given 2 units of blood and repeat hemoglobin is 6.2 this morning. She has just started receiving the third unit. GI consulted. PAST MEDICAL HISTORY: 1. Iron deficiency anemia. 2. Hypothyroidism. 3. Hypertension. 4. Anxiety. 5. History of DVT in 2014. 6. Recent diagnosis of superficial thrombophlebitis in left lower extremity. PAST SURGICAL HISTORY: 1. Status post cholecystectomy. 2. Status post tonsillectomy. 3. History of D and Cs. MEDICATIONS: At home: 1. Aspirin 81 mg daily. 2. Multivitamin. 3. Potassium chloride 10 mEq daily. 4. Citalopram 40 mg daily. 5. Vitamin D 2000 units daily. 6. Ferrous sulfate 325 mg daily. 7. Furosemide 20 mg daily. 8. Levothyroxine 150 mcg daily. 9. Metoprolol 25 mg daily. 10. Valsartan 320 mg daily. * The patient uses NSAIDs infrequently. ALLERGIES: No known drug allergies. FAMILY HISTORY: Mother had colon cancer in her 60s or 70s. No other known GI or liver disease. 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 Lifetime nonsmoker. Rare alcohol use. No drug use. REVIEW OF SYSTEMS: Complete review of systems is negative except as mentioned above. PHYSICAL EXAMINATION: Vital Signs: Afebrile, heart rate in the 80s, blood pressure 140s over 50s to 60s, 97% on room air. General: Pleasant, well-appearing woman, resting in bed. HEENT: Mucous membranes are moist. Sclerae are anicteric. Pulmonary: Lungs are clear to auscultation in the anterior lung bowen bilaterally. Cardiovascular: Regular rate and rhythm. Abdomen: Obese. Soft, nontender, and nondistended. Extremities: Mild edema, swelling, and redness in left lower extremity. Neuro: A and O x3. DIAGNOSTIC STUDIES/LAB DATA: Labs reviewed in the HPI. White count is 9.8 on arrival with a hemoglobin of 5.7 and hematocrit of 18. After 2 units of blood, the patient's hemoglobin is only 6.2 with a hematocrit of 20. MCV is 74 to 75. Platelet count is normal. INR 1.55 on admission. BUN is normal. Creatinine is normal. Iron is less than 20, percent iron saturation is 4%, ferritin is 4.4. Liver enzymes are normal. Vitamin B12 and folate are normal. IMPRESSION AND RECOMMENDATIONS: Ms. Randle is a 63-year-old woman with a history of iron deficiency anemia of unclear etiology and history of DVT with a recent diagnosis of superficial thrombophlebitis, who is admitted with symptomatic severe iron deficiency anemia. The patient reports chronically irregular bowel movements with some some dark stools in the setting of daily iron use. These symptoms have not changed recently. She has gastroesophageal reflux disease on a daily basis. Otherwise , she denies any gastrointestinal symptoms. Labs certainly demonstrate significant iron deficiency anemia, although I am surprised that her hemoglobin did not respond more appropriately to the 2 units of blood. I would have expected a more significant increase in H/H, especially if she is not having any overt bleeding. The patient is appropriately receiving IV PPI. She is also receiving blood transfusions. Team will continue to monitor the CBC. Please continue to hold anticoagulation, especially if the patient is not felt to have true DVT at present. We will plan for an EGD today to evaluate for any upper gastrointestinal bleeding source. If the EGD is negative, then I would discuss repeating a colonoscopy given the severity of the iron deficiency anemia. Would also recommend that the primary team rule out other sources of acute on chronic anemia including hemolysis or intra-abdominal bleeding, particularly if the H/H fail to improve with transfusion as would be expected. Thank you very much for this consult. GI will continue to follow. [id number]/[facility] #: [id number] JONATHON
--- NOTE | 2019-04-24 17:42 | PN ---
Progress Note - Progress Note Date of Service: 04/24/19 SOAP: []
--- NOTE | 2019-04-24 17:50 | PN ---
Progress Note - Progress Note Date of Service: 04/24/19 SOAP: Subjective: []Seen in January with fatigue, history of DVT. Found to have RIAN, Rx oral iron with Poly-Iron 150 mg po daily. Had been on PPI, trial off acid supression. Three weeks ago porgressive fatigue, SOB. Early this week developed pain and swelling in LLE. Seen by Dr. Powell and had US + supreficial thrombosis LLE. I do not have report, possible extensive thrombosis. CTA negative. Case discussed with Dr. Powell yesterday. Planned trial of Xarelto but CBC sent and Hgb 5.7 down from 10.9 in January, Iron studies low, normal B12. Admission and EGD with 5 small, clean based ulcers in hiatal hernia. No active bleeding. Tx 3 UPRBC Hgb 5.7 to 6.9. She feels better after blood. History significant for recurrent colon polyps, due for colonoscopy in 09/2019. Acetaminophen (Tylenol Tab*) 650 mg PO Q6H PRN PRN Reason: PAIN - MILD Cholecalciferol (Vitamin D Tab*) 2,000 units PO DAILY [facility] Last Admin: 04/24/19 10:18 Dose: 2,000 units Citalopram Hydrobromide (Celexa Tab*) 40 mg PO DAILY [facility] Last Admin: 04/24/19 10:18 Dose: 40 mg Ferrous Sulfate (Ferrous Sulfate Tab*) 325 mg PO DAILY [facility] Last Admin: 04/24/19 10:18 Dose: 325 mg Furosemide (Lasix Tab*) 20 mg PO DAILY [facility] Last Admin: 04/24/19 10:18 Dose: 20 mg Heparin Sodium (Porcine) (Heparin Vial(*)) 5,000 units SUBCUT Q12HR [facility] Levothyroxine Sodium (Synthroid Tab*) 150 mcg PO 0600 [facility] Last Admin: 04/24/19 07:00 Dose: 150 mcg Metoprolol Succinate (Toprol Xl Tab*) 50 mg PO DAILY [facility] Last Admin: 04/24/19 10:18 Dose: 50 mg Ondansetron HCl (Zofran Odt Tab*) 4 mg PO Q8H PRN PRN Reason: NAUSEA/VOMITING Pantoprazole Sodium (Protonix Iv*) 40 mg IV Q12H [facility] Valsartan (Diovan Tab*) 320 mg PO DAILY [facility] Last Admin: 04/24/19 10:18 Dose: 320 mg Objective: [] Vital Signs Temp Pulse Resp BP Pulse Ox 97.5 F 73 17 128/63 98 04/24/19 13:45 04/24/19 13:45 04/24/19 13:45 04/24/19 13:45 04/24/19 13:45 HEENT : pale CTA RRR S1S2 Obese, NT ND Ext + edema, red, tender LLE Neuro NF Assessment: []63 year old with history of RIAN and colon polyps as well as h/o DVT in 2017. Presents with superficial thrombosis and found to have reduced Hgb to 5.7. Plan: []1. EGD with multiple ulcers, possibly from friction in HH. - Continue PPI indefinitely. 2. Tx PRBC now and then follow - If stable to improved tomorrow may be discharged. will plan IV iron as outpatient. 3. If additional decrease in Hgb, check colonoscopy and small bowl capsule. 4. Superficial phlebitis. - Heparain SQ for DVT prophylaxis - will obtain US report and re-check in 4 weeks. - No anticoagulation on discharge.
[2019-04-24] MEDS: Pantoprazole IV* 40 MG IV SCH (18:41)
--- NOTE | 2019-04-24 20:43 | PRO ---
CC: Majo Powell MD * DATE OF PROCEDURE: 04/24/19 - ROOM #411 PROCEDURE: EGD with biopsy. REFERRING PROVIDER: Majo Powell MD. INDICATION: The patient is hospitalized with [id number] severe iron deficiency anemia. Hemoglobin was less than 6 on arrival. No overt bleeding noted per the patient. She reports GERD on a daily basis. Stool ranges from loose to hard. Stool is often dark in color, although she thinks this is related to iron supplementation. Occasional bright red blood per rectum after straining with constipated stools. No prior upper endoscopy. MEDICATIONS GIVEN: Midazolam 6 mg IV, Fentanyl 50 mcg IV. DESCRIPTION OF PROCEDURE: Full disclosure of risks was reviewed with the patient as detailed on the consent form. The patient was placed in the left lateral decubitus position and monitored with continuous pulse oximetry, capnography, interval blood pressure monitoring, and direct observation. A bite -block was placed between the patient's teeth. An adult gastroscope was then inserted into the patient's mouth and advanced down the esophagus, into the stomach, and into the distal duodenum. Findings and interventions described below. FINDINGS: Esophagus was a normal tubular structure without rings or strictures. GE junction was regular and occurred at 37 cm. Scope was then advanced into a large sliding hiatal hernia with the top of the gastric folds measuring at approximately 43 cm. Within the hiatal hernia, there were patches of erythematous mucosa as well as three clean-based ulcers measuring from 0.5 to 1 cm. No stigmata of recent bleeding. Scope was then advanced into the remainder of the stomach. Stomach was examined in the forward and retroflexed views. In the prepyloric gastric antrum, there were at least 2 small clean- based gastric erosions. There was also mild erythema seen in the gastric antrum. There were very small streaks of old dark red blood seen along the antral mucosa. No fresh blood seen within the stomach. Scope was then advanced into the duodenum to at least the third portion. Duodenal mucosa was unremarkable. There was bae bilious fluid. No evidence of fresh or old blood. No AVMs. No erosions or ulcers. Biopsies obtained to rule out celiac disease. Scope was then withdrawn back into the stomach. Biopsies were obtained from the antrum to send for CLOtest. Scope was then withdrawn from the patient. The patient tolerated the procedure well and was recovered in the GI recovery area. IMPRESSION: 1. Complete upper endoscopy to the distal duodenum. 2. Large hiatal hernia. 3. Three clean-based ulcers within the hiatal hernia and two small clean-based ulcers in the antrum. Gastric antral erythema. FOLLOWUP: 1. Await pathology. 2. Continue to follow CBC. 3. Continue BID PPI. 4. I suspect that the presence of multiple gastric ulcers is contributing to the patient's chronic iron deficiency anemia. I cannot explain why the patient did not respond appropriately to the 2 units of blood as she is not having any evidence active upper GI bleeding. Discussed the case with Dr. Wong. I would recommend continued close monitoring of CBC. The patient has received an additional 2 units of blood. If her hemoglobin begins to increase as expected and remains stable, then I would plan for outpatient GI followup with repeat EGD in 2 months. If the patient's hemoglobin does not improve as would be expected or does not remain stable, then I would recommend ruling out other sources of anemia. Would also consider inpatient colonoscopy in that circumstance. Would keep the patient on a clear diet for now until follow-up labs result to clarify Hgb trend. Thank you very much for this consult. GI will continue to follow along. [id number]/[facility] #: [id number] JONATHON
[2019-04-24] MEDS: Heparin VIAL(*) 5000 UNITS/ML VIAL (FIVE THOUSAND) SUBCUT SCH (21:49)
[2019-04-25] MEDS: Levothyroxine TAB* 150 MCG TAB PO SCH (05:34)
[2019-04-25] MEDS: Pantoprazole IV* 40 MG IV SCH ×2 (05:34→18:06)
[2019-04-25 05:48] LABS: ABS Basophils 0.1 10^3/ul (0-0.2); ABS Eosinophils 0.2 10^3/ul (0-0.6); ABS Lymphocytes 1.3 10^3/ul (1.0-4.8); ABS Neutrophils 6.1 10^3/ul (1.5-7.7); Eosinophil % 2.3 %; Hematocrit 23 % (35-47); Hemoglobin 7.5 g/dL (12.0-16.0); Lymphocyte % 15.2 %; Mean Corpuscular HGB Conc 32 g/dL (31-36); Mean Corpuscular Hemoglobin 25 pg (27-31); Mean Corpuscular Volume 76 fL (80-97); Mean Platelet Volume 7.6 fL (7.4-10.4); Platelet Count 331 10^3/uL (150-450); Red Blood Count 3.07 10^6 /uL (3.70-4.87); Red Cell Distribution Width 21 % (10-15); White Blood Count 8.8 10^3/uL (3.5-10.8)
[2019-04-25] MEDS: Cholecalciferol TAB* 1000 UNITS PO SCH (08:15)
[2019-04-25] MEDS: Citalopram TAB* 20 MG PO SCH (08:16)
[2019-04-25] MEDS: Furosemide TAB* 20 MG PO SCH (08:16)
[2019-04-25] MEDS: Metoprolol Succinate XL TAB* 50 MG PO SCH (08:16)
[2019-04-25] MEDS: Ferrous Sulfate TAB* 325 MG PO SCH (08:17)
[2019-04-25] MEDS: Heparin VIAL(*) 5000 UNITS/ML VIAL (FIVE THOUSAND) SUBCUT SCH (08:17)
[2019-04-25] MEDS: Valsartan TAB* 160 MG PO SCH (08:17)
[2019-04-25 12:52] LABS: Hematocrit 25 % (35-47); Mean Corpuscular HGB Conc 31 g/dL (31-36); Mean Corpuscular Hemoglobin 24 pg (27-31); Mean Corpuscular Volume 77 fL (80-97); Mean Platelet Volume 7.8 fL (7.4-10.4); Platelet Count 369 10^3/uL (150-450); Red Blood Count 3.32 10^6 /uL (3.70-4.87); Red Cell Distribution Width 21 % (10-15); White Blood Count 8.8 10^3/uL (3.5-10.8)
[2019-04-25 15:21] VITALS: BP 119/49
--- NOTE | 2019-04-25 23:16 | DS ---
CC: Dr. Wick; Dr. Tess Escobedo; Dr. Wong * DISCHARGE SUMMARY: DATE OF ADMISSION: 04/23/19 DATE OF DISCHARGE: 04/25/19 PROVIDER: JOSE DANIEL Kelly ATTENDING PHYSICIAN WHILE IN THE HOSPITAL: Deshawn Jameson MD * (dictated by JOSE DANIEL Kelly). PRIMARY CARE PROVIDER: Dr. Wick. CONSULTING DONATION SPECIALIST: Tess Escobedo MD CAGE/VAULT SUPERVISOR/ONCOLOGIST: Dr. Wong. PRIMARY DIAGNOSES: 1. Anemia, likely secondary to iron-deficiency anemia. 2. Multiple nonbleeding gastric ulcers. 3. Superficial venous thrombosis of left lower extremity. SECONDARY DIAGNOSES: 1. Iron-deficiency anemia. 2. Hypothyroidism. 3. Hypertension. 4. Anxiety. 5. Distant deep vein thrombosis, thought to be unprovoked in 2015. 6. Obesity. PROCEDURES WHILE IN THE HOSPITAL: 1. EGD on 04/24/[address] Escobedo, findings: At least 3 clean- based gastric ulcers and hiatal hernia and at least 2 clean-based gastric ulcers at the antrum, normal duodenum, no AVMs, no pressure or active bleeding. Old blood seen in the stomach. 2. Venous Doppler of left lower extremity on 04/25/19, impression: There is occlusive thrombosis of the left greater saphenous vein from mid thigh to knee. Extensive surrounding soft tissue edema. No evidence for left lower extremity DVT. PERTINENT LABORATORY DATA: Initial hemoglobin on presentation 5.7, discharge hemoglobin 8.0. Iron less than 20. Ferritin 4.4. HISTORY OF PRESENT ILLNESS/HOSPITAL COURSE: Estrellita Randle is a 63-year-old white female with a past medical history significant for hypertension, iron deficiency anemia, history of DVT, hypothyroidism, who presented to the emergency department due to primary care provider finding abnormal lab values. She was feeling shortness of breath when making her bed and was feeling fatigued and dizziness. Ultimately, she was found to have hemoglobin of 5.7. Please see admitting history and physical dictated by Dr. La Nena Clemons for further information. The patient received 2 units of packed red blood cells and had a poor response to this. Her hemoglobin did not rise as expected and ultimately received an additional 2 units of PRBCs for a total of 4 units during this hospital stay. On the day of discharge, her H and H is rising and stable. During the hospital stay, she was found to have no microscopic blood in her stool. The patient has melenic stools typically as she takes an iron supplement , but was not noticing bright red blood stools. She had colonoscopy in the outpatient setting within the last several years, which was of little concern and Dr. Escobedo proceeded with EGD, which found several nonbleeding ulcers. The patient was started on IV Protonix. The patient was seen by Dr. Wong during her stay, who agreed that the patient should not be on Xarelto at this time. On the day of discharge, the patient was feeling that the redness and swelling and pain in her left lower extremity was spreading upward from below her knee to above her knee. Left lower extremity Doppler was performed, which demonstrated thrombosis of the greater saphenous, which did not extend towards the junction of the femoral vein and therefore anticoagulation is still indicated at this time. Otherwise, the patient denies chest pain, difficulty breathing, abdominal pain, nausea, vomiting, fever, chills. PHYSICAL EXAM: General: Morbidly obese white female, lying upright in hospital bed, appearing comfortable, in no acute distress. Eyes: PERRL. Sclerae anicteric. ENT: Mucous membranes moist. Cardio: Regular rate and rhythm without murmurs, rubs, or gallops. Lungs: Clear to auscultation throughout. Abdomen: Soft, nontender, nondistended. Extremities: Isolated region of edema approximately 6 cm in diameter to her left lower extremity inferomedial to the knee, which is tender to palpation with minimal erythema extending upwards, past the knee approximately 5 cm without significant edema to that region. There is +1 pitting edema pretibially to the left lower extremity. Right extremity has no clubbing, cyanosis, or edema. Neuro: The patient is alert and oriented x3. No focal deficits. Able to move all extremities. No tremors. Psych: The patient is pleasant and cooperative. DISCHARGE PLAN: Diet: Regular unrestricted diet. Activity: The patient may return to normal activity as tolerated. The patient was advised to return to the emergency department should she experience shortness of breath, chest pain, bright red blood in her stool. She is advised to follow up with her primary care provider, Dr. Wick, within a week regarding this hospitalization. The patient is advised to follow up with Dr. Wong and his office will be reaching out to her to have followup. At time of follow up, IV iron infusions will be arranged. Additionally, the patient should follow up with Dr. Escobedo. At the time of followup with her primary care provider, a repeat CBC should be completed. Additionally, the patient should have repeat left lower extremity Doppler 2 weeks from today to ensure that the superficial thrombosis is not extending to the saphenofemoral junction. DISCHARGE MEDICATIONS: Pantoprazole 40 mg p.o. b.i.d. Continued home medications: 1. Valsartan 320 mg p.o. daily. 2. Celexa 40 mg p.o. daily. 3. Vitamin D 2000 units p.o. daily. 4. Aspirin 81 mg p.o. daily. 5. Potassium chloride 10 mEq p.o. daily. 6. Multivitamin 1 cap p.o. daily. 7. Metoprolol succinate 50 mg p.o. daily. 8. Levothyroxine 250 mcg p.o. daily. 9. Lasix 20 mg p.o. daily. 10. Ferrous sulfate 325 mg p.o. daily. CONDITION ON DISCHARGE: Stable. DISPOSITION: Home. TIME SPENT: Approximately 45 minutes was spent on this discharge, approximately half of this time was spent at bedside evaluating the patient, discussing plans of discharge. JOSE DANIEL KELLY [id number]/[facility] #: [id number] [facility]ENTER[facility]az
== END 2019-04-25 18:05 | disposition home or self-care (01) | DRG 663 ==
LOC: ED 21:05 → MED 23:06
PROVIDERS: ADMIT Internal Medicine; ATTEND Internal Medicine
PROC: 30233N1 Transfusion of Nonautologous Red Blood Cells into Peripheral Vein, Percutaneous Approach (ICD-10-PCS; principal; 2019-04-23)
PROC: 0DB98ZX Excision of Duodenum, Via Natural or Artificial Opening Endoscopic, Diagnostic (ICD-10-PCS; 2019-04-24)
PROC: 0DB78ZX Excision of Stomach, Pylorus, Via Natural or Artificial Opening Endoscopic, Diagnostic (ICD-10-PCS; 2019-04-24)
DX: D50.9 Iron deficiency anemia, unspecified (principal); I82.812 Embolism and thrombosis of superficial veins of left lower extremity; K92.1 Melena; Z68.43 Body mass index [BMI] 50.0-59.9, adult; K21.9 Gastro-esophageal reflux disease without esophagitis; K57.90 Diverticulosis of intestine, part unspecified, without perforation or abscess without bleeding; K64.4 Residual hemorrhoidal skin tags; E03.9 Hypothyroidism, unspecified; I10 Essential (primary) hypertension; E66.9 Obesity, unspecified; K44.9 Diaphragmatic hernia without obstruction or gangrene; K25.9 Gastric ulcer, unspecified as acute or chronic, without hemorrhage or perforation; F41.0 Panic disorder [episodic paroxysmal anxiety]; Z83.3 Family history of diabetes mellitus; Z86.718 Personal history of other venous thrombosis and embolism; Z09 Encounter for follow-up examination after completed treatment for conditions other than malignant neoplasm; Z86.010 Personal history of colon polyps; Z90.49 Acquired absence of other specified parts of digestive tract; Z80.0 Family history of malignant neoplasm of digestive organs; Z80.42 Family history of malignant neoplasm of prostate; Z83.2 Family history of diseases of the blood and blood-forming organs and certain disorders involving the immune mechanism; Z72.89 Other problems related to lifestyle; Z78.0 Asymptomatic menopausal state; Z79.82 Long term (current) use of aspirin
CPT/HCPCS: 36415; 80053; 82270; 82607; 82728; 82746; 83540; 83550; 85014; 85018; 85025; 85027; 85610; 85730; 86850; 86900; 86901; 86922; 87077; 87177; 87209; 87328; 87329; 88305; 93005; 99156; 99283; A9270-GY; J1644; J2250; J3010; P9040